=== PATIENT | male | born 1990 | race African-American/Black ===

== ENCOUNTER 2017-09-30 05:01 | Emergency (ER) | payer SELFPAY ==
[~2017-09-30] VITALS: Ht 172.7 cm; Wt 79.0 kg
[~2017-09-30 05:01] MED LIST: Z.0.NO CURRENT MEDS
[2017-09-30 05:02] VITALS: BP 112/65; PULSE 92; RESP 18; TEMP 98.5; O2SAT 96
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
[2017-09-30] MEDS ORDERED: TETANUS/DIPHTHERIA TOXOID ADULT 0.5 ML VIAL IM ONE (05:30)
[2017-09-30] MEDS ORDERED: ACETAMINOPHEN 325 MG TAB PO ONE (05:30)
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
== END 2017-09-30 05:45 | disposition left against medical advice (07) ==
LOC: NEPC 05:01
DX: S01.81XA Laceration without foreign body of other part of head, initial encounter (principal); S00.03XA Contusion of scalp, initial encounter; S69.91XA Unspecified injury of right wrist, hand and finger(s), initial encounter; X58.XXXA Exposure to other specified factors, initial encounter
CPT/HCPCS: 70450; 90471